=== PATIENT | male | born 1965 | race Two or more races ===

== ENCOUNTER 2019-04-21 01:34 | Emergency (ER) | payer BC ==
[2019-04-21] MEDS ORDERED: Sodium Chloride 0.9% 10 ML Syringe FLUSH PRN (02:06)
[2019-04-21] MEDS ORDERED: Ondansetron 4 MG/2 ML SDV IVPUSH ONE (02:06)
[2019-04-21] MEDS ORDERED: Ketorolac 30 MG/ML SDV IVPUSH ONE (02:06)
[2019-04-21] MEDS ORDERED: Sodium Chloride 0.9% 2.5 ML Syringe FLUSH PRN (02:06)
[2019-04-21] MEDS ORDERED: Sodium Chloride 0.9% 1,000 ML IV ONE (02:06)
--- NOTE | 2019-04-21 02:18 | EDM.PDOC ---
<Vidal Montiel - Last Filed: 04/21/19 03:51> ED HPI GENERAL MEDICAL PROBLEM - General Chief Complaint: Genitourinary Problem Stated Complaint: STOMACH PAIN Time Seen by Provider: 04/21/19 01:49 - History of Present Illness INITIAL COMMENTS - FREE TEXT/NARRATIVE: HISTORY AND PHYSICAL: History of present illness: 53-year-old male presents in the emergency department accompanied by his for the evaluation of 7/10 constant sharp shooting right flank pain and right lower quadrant abdominal pain. The patient first noted the pain approximately 3 hours ago. He had difficulties falling asleep due to the pain and thus as presented for evaluation. Pain H&H in the right lower quadrant extends down through his right groin and he points down to his penis. The patient admits to not drinking enough water the day he works outside. The patient has no history of kidney stone and has not had an appendectomy. The patient denies any recent fevers or chills. He report nausea but without episodes of vomiting. Review of systems: As per history of present illness and below otherwise all systems reviewed and negative. Past medical history: As per history of present illness and as reviewed below otherwise noncontributory. Surgical history: As per history of present illness and as reviewed below otherwise noncontributory. Social history: No reported history of drug or alcohol abuse. Family history: As per history of present illness and as reviewed below otherwise noncontributory. Physical exam: Constitutional: HEENT: Atraumatic, normocephalic, pupils reactive, negative for conjunctival pallor or scleral icterus, mucous membranes moist, throat clear, neck supple, nontender, trachea midline. Lungs: Clear to auscultation, breath sounds equal bilaterally, chest nontender. Heart: S1S2, regular, negative for clicks, rubs, or JVD. Abdomen: Soft, nondistended, Slight tenderness to palpation to the RLQ. Negative for masses or hepatosplenomegaly. Positive for right costovertebral tenderness. Pelvis: Stable nontender. Genitourinary: Deferred. Rectal: Deferred. Extremities: Atraumatic, negative for cords or calf pain. Neurovascular unremarkable. Neuro: Awake, alert, oriented. Cranial nerves II through XII unremarkable. Cerebellum unremarkable. Motor and sensory unremarkable throughout. Exam nonfocal. Diagnostics: UA, CBC, CMP, CT of abdomen & pelvis without contrast Therapeutics: Zofran Toradol 1L 0.9 NS Flowmax Impression: Right flank pain Right abdominal pain Right nephrolithiasis Plan: Review of CT abdomen and pelvis reveals a 4 mm stone present in the right ureterovesicular junction causing a mild right ureter and mild to right renal pelvocaliectasis. The left kidney is unremarkable. Additionally, there is a large gallstone is present measuring 4 x 2.5cm. The results of his UA demonstrated no UTI. However, his specific gravity was elevated. The patient is stable to be discharged home with a prescription for flowmax, noroco & zofran. Additionally, he will be given a urinary strainer. We stressted the importance of him to consume more water. He is to monitor his urinary output if this decreases he needs to seek additional care. Education provided to the patient and his . There questions were answered. Definitive disposition and diagnosis as appropriate pending reevaluation and review of above. Right Lower Abdominal Pain Score (Numeric/FACES): 7 - Related Data Allergies Allergy/AdvReac Type Severity Reaction Status Date / Time No Known Allergies Allergy Verified 04/21/19 01:45 Home Meds: Home Meds Hydrocodone/Acetaminophen [[place] 7.5-325 Tablet] 1 each PO Q8H PRN #10 tablet [Rx] Lisinopril 5 mg PO DAILY 04/21/19 [History] Ondansetron [Zofran ODT] 4 mg PO Q8H PRN #10 tab.dis 04/21/19 [Rx] Tamsulosin HCl [Flomax] 0.4 mg PO DAILY #10 cap.er.24h 04/21/19 [Rx] atorvaSTATin [Lipitor] 10 mg PO BEDTIME 04/21/19 [History] metFORMIN [Glucophage XR] 850 mg PO BID 04/21/19 [History] Past Medical History Cardiovascular History: Reports: Hypertension Other Cardiovascular History: WPW Respiratory History: Reports: None Endocrine/Metabolic History: Reports: Diabetes, Type II - Infectious Disease History Infectious Disease History: Reports: Chicken Pox Social & Family History - Family History Family Medical History: Noncontributory - Tobacco Use Smoking Status *Q: Never Smoker Second Hand Smoke Exposure: No - Caffeine Use Caffeine Use: Reports: None - Recreational Drug Use Recreational Drug Use: No Course - Vital Signs Last Recorded V/S: Last Vital Signs Temp 35.6 C 04/21/19 01:48 Pulse 58 L 04/21/19 01:48 Resp 16 04/21/19 01:48 BP 163/92 H 04/21/19 01:48 Pulse Ox 96 04/21/19 01:48 - Orders/Labs/Meds Orders: Active Orders 24 hr Category Date Time Status Communication Order [RC] STAT Care 04/21/19 03:20 Active Sodium Chloride 0.9% [Saline Flush] Med 04/21/19 02:06 Active 10 ml FLUSH ASDIRECTED PRN Sodium Chloride 0.9% [Saline Flush] Med 04/21/19 02:06 Active 2.5 ml FLUSH ASDIRECTED PRN Saline Lock Insert [OM.PC] Stat Oth 04/21/19 02:05 Ordered Medication Orders Sodium Chloride (Saline Flush) 10 ml FLUSH ASDIRECTED PRN PRN Reason: Keep Vein Open Last Admin: 04/21/19 02:20 Dose: 10 ml Sodium Chloride (Saline Flush) 2.5 ml FLUSH ASDIRECTED PRN PRN Reason: Keep Vein Open Last Admin: 04/21/19 02:21 Dose: 2.5 ml Labs: Laboratory Tests 04/21/19 04/21/19 04/21/19 Range/Units 01:50 01:50 03:35 WBC 11.37 H (4.0-11.0) K/uL RBC 5.56 (4.50-5.90) M/uL Hgb 16.6 (13.0-17.0) g/dL Hct 47.7 (38.0-50.0) % MCV 85.8 (80.0-98.0) fL MCH 29.9 (27.0-32.0) pg MCHC 34.8 (31.0-37.0) g/dL RDW Std Deviation 40.6 (28.0-62.0) fl RDW Coeff of Stephanie 13 (11.0-15.0) % Plt Count 183 (150-400) K/uL MPV 11.30 (7.40-12.00) fL Neut % (Auto) 45.3 L (48.0-80.0) % Lymph % (Auto) 42.0 H (16.0-40.0) % [place] % (Auto) 10.1 (0.0-15.0) % Eos % (Auto) 2.4 (0.0-7.0) % Baso % (Auto) 0.2 (0.0-1.5) % Neut # (Auto) 5.2 (1.4-5.7) K/uL Lymph # (Auto) 4.8 H (0.6-2.4) K/uL [place]he # (Auto) 1.2 H (0.0-0.8) K/uL Eos # (Auto) 0.3 (0.0-0.7) K/uL Baso # (Auto) 0.0 (0.0-0.1) K/uL Nucleated RBC % 0.0 /100WBC Nucleated RBCs # 0 K/uL Sodium 140 (136-148) mmol/L Potassium 3.6 (3.5-5.1) mmol/L Chloride 104 (98-107) mmol/L Carbon Dioxide 25.0 (21.0-32.0) mmol/L BUN 18 (7.0-18.0) mg/dL Creatinine 1.1 (0.8-1.3) mg/dL Est Cr Clr Drug Dosing 64.28 mL/min Estimated GFR (MDRD) > 60.0 ml/min Glucose 177 H (74-106) mg/dL Calcium 9.1 (8.5-10.1) mg/dL Total Bilirubin 0.4 (0.2-1.0) mg/dL AST 70 H (15-37) IU/L ALT 149 H (14-63) IU/L Alkaline Phosphatase 150 H (46-116) U/L Total Protein 7.7 (6.4-8.2) g/dL Albumin 4.1 (3.4-5.0) g/dL Globulin 3.6 (2.6-4.0) g/dL Albumin/Globulin Ratio 1.1 (0.9-1.6) Urine Color YELLOW Urine Appearance CLEAR Urine pH 5.5 (5.0-8.0) Ur Specific [place] >= 1.030 (1.001-1.035) Urine Protein 100 H (NEGATIVE) mg/dL Urine Glucose (UA) NEGATIVE (NEGATIVE) mg/dL Urine Ketones NEGATIVE (NEGATIVE) mg/dL Urine Occult Blood LARGE H (NEGATIVE) Urine Nitrite NEGATIVE (NEGATIVE) Urine Bilirubin NEGATIVE (NEGATIVE) Urine Urobilinogen 0.2 (<2.0) EU/dL Ur Leukocyte Esterase NEGATIVE (NEGATIVE) Urine RBC 8-11 (0-2/HPF) Urine WBC 0-1 (0-5/HPF) Ur Epithelial Cells RARE (NONE-FEW) Calcium Oxalate Crystal FEW (NEGATIVE) Urine Bacteria FEW (NEGATIVE) Urine Mucus LIGHT (NONE-MOD) Meds: Medications Generic Name Dose Route Start Last Admin Trade Name Freq PRN Reason Stop Dose Admin Sodium Chloride 10 ml 04/21/19 02:06 04/21/19 02:20 Saline Flush FLUSH 10 ml ASDIRECTED PRN Administration Keep Vein Open Sodium Chloride 2.5 ml 04/21/19 02:06 04/21/19 02:21 Saline Flush FLUSH 2.5 ml ASDIRECTED PRN Administration Keep Vein Open Discontinued Medications Generic Name Dose Route Start Last Admin Trade Name Richq PRN Reason Stop Dose Admin Sodium Chloride 1,000 mls @ 999 mls/hr 04/21/19 02:06 04/21/19 02:14 Normal Saline IV 04/21/19 03:06 999 mls/hr STAT ONE Administration Ketorolac Tromethamine 30 mg 04/21/19 02:06 04/21/19 02:19 Toradol IVPUSH 04/21/19 02:07 30 mg ONETIME ONE Administration Morphine Sulfate 2 mg 04/21/19 03:23 04/21/19 03:31 Morphine IVPUSH 04/21/19 03:24 2 mg ONETIME ONE Administration Ondansetron HCl 4 mg 04/21/19 02:06 04/21/19 02:19 Zofran IVPUSH 04/21/19 02:07 4 mg ONETIME ONE Administration Tamsulosin HCl 0.4 mg 04/21/19 03:19 04/21/19 03:30 Flomax PO 04/21/19 03:20 0.4 mg ONETIME ONE Administration Departure - Departure Disposition: Home, Self-Care 01 Clinical Impression: Ureterolithiasis - Discharge Information Prescriptions: Hydrocodone/Acetaminophen [[place] 7.5-325 Tablet] 1 each PO Q8H PRN #10 tablet PRN Reason: Pain (Severe 7-10) Ondansetron [Zofran ODT] 4 mg PO Q8H PRN #10 tab.dis PRN Reason: Nausea/Vomiting Tamsulosin HCl [Flomax] 0.4 mg PO DAILY #10 cap.er.24h Instructions: Kidney Stones, [id number] Referrals: Leonidas Willingham MD [Primary Care Provider] - Forms: ED Department Discharge Additional Instructions: The following information is given to patients seen in the emergency department who are being discharged to home. This information is to outline your options for follow-up care. We provide all patients seen in our emergency department with a follow-up referral. The need for follow-up, as well as the timing and circumstances, are variable depending upon the specifics of your emergency department visit. If you don't have a primary care physician on staff, we will provide you with a referral. We always advise you to contact your personal physician following an emergency department visit to inform them of the circumstance of the visit and for follow-up with them and/or the need for any referrals to a consulting specialist. The emergency department will also refer you to a specialist when appropriate. This referral assures that you have the opportunity for followup care with a specialist. All of these measure are taken in an effort to provide you with optimal care, which includes your followup. Under all circumstances we always encourage you to contact your private physician who remains a resource for coordinating your care. When calling for followup care, please make the office aware that this follow-up is from your recent emergency room visit. If for any reason you are refused follow-up, please contact the [facility] emergency department at and ask to speak to the emergency department charge nurse. [facility] [address] [place] [id number] Strain all urine looking for the kidney stone and push hydration. You have been given prescriptions for [place] for pain, Zofran for nausea and vomiting and the Flomax it will help push the stone out. You have been given a dose of Flomax here this morning so take the next dose before bedtime later tonight. You may use [id number] Tylenol or ibuprofen for pain management while your work and up and about and/or driving a car and only take the Princeton when you're at home for stronger pain. Keep in mind the Princeton may make you dizzy or drowsy so do not drive a car or operate any machinery and only take while at home. Please call and schedule a follow-up appointment with our urologist for reevaluation and further care of the kidney stone and return to ER as needed and as discussed - My Orders Last 24 Hours: My Active Orders 04/21/19 02:05 Saline Lock Insert [OM.PC] Stat 04/21/19 02:06 Sodium Chloride 0.9% [Saline Flush] 10 ml FLUSH ASDIRECTED PRN Sodium Chloride 0.9% [Saline Flush] 2.5 ml FLUSH ASDIRECTED PRN 04/21/19 03:20 Communication Order [RC] STAT - Assessment/Plan Last 24 Hours: My Active Orders 04/21/19 02:05 Saline Lock Insert [OM.PC] Stat 04/21/19 02:06 Sodium Chloride 0.9% [Saline Flush] 10 ml FLUSH ASDIRECTED PRN Sodium Chloride 0.9% [Saline Flush] 2.5 ml FLUSH ASDIRECTED PRN 04/21/19 03:20 Communication Order [RC] STAT <Aury Marks - Last Filed: 04/21/19 03:57> ED HPI GENERAL MEDICAL PROBLEM - History of Present Illness INITIAL COMMENTS - FREE TEXT/NARRATIVE: This is Dr. Marks dictating addendum note as I'm the supervising physician on this case. I agree with history and physical as above and the patient does have a history of hypertension hypercholesterolemia and [id number] diabetes. He says the pain started suddenly and it was in the right flank and has migrated and is now in the right mid abdomen shooting down to his testicle. He does not have any urinary complaints such as frequency or urgency and has no kidney or prostate history. He's had no fever with this but is nauseated. He only took Tylenol prior to coming here. On my physical exam he is comfortable in the room and ambulatory in the ED and is not diaphoretic. He only has some mild tenderness to palpation in the abdomen on the right side that I cannot reproduce the pain exactly and there is no rebound or guarding. We will proceed with our workup including UA with reflex CBC CMP and CT scan of the abdomen and pelvis without contrast looking for kidney stone. We will give him IV fluids Zofran and Toradol and reevaluate his pain for more medications as needed. The patient's pain was improved but we will give him a small dose of morphine as well as Escribe him prescriptions for [place] Zofran and Flomax for home. The patient was offered Insty Meds but preferred to have them sent to the pharmacy. We encouraged increased hydration and straining of his urine and will give him urology follow-up; the patient was also told about the incidental gallstone and the need to monitor that and follow-up Impression: Right ureterolithiasis/UVJ stone, incidental gallstone ED ROS GENERAL - Review of Systems Review Of Systems: ROS reveals no pertinent complaints other than HPI. ED EXAM, GI/ABD - Physical Exam Exam: See Below (See dictation) Departure - Departure Time of Disposition: 03:56 Condition: Good
[2019-04-21 02:36] LABS: CHLORIDE,CL 104 mmol/L (98-107); SODIUM,NA 140 mmol/L (136-148)
--- NOTE | 2019-04-21 02:56 | CT ---
INDICATION: Right side abdominal pain TECHNIQUE: CT Abdomen and pelvis without i.v. contrast. Coronal and sagittal reformats were obtained. COMPARISON: None FINDINGS: Lower chest: Unremarkable. Liver: Unremarkable. Spleen: Unremarkable. Pancreas: Unremarkable. Gallbladder: A large gallstone is present measuring nearly 4 x 2.5 cm. Kidney: There is a 4 mm stone present in the right ureterovesicular junction causing mild right hydroureter and mild to moderate right renal pelvicaliectasis. The left kidney and ureter are unremarkable in appearance. Adrenal: Unremarkable. Bowel: Unremarkable. The appendix is normal in appearance and size. Vascular: Unremarkable. Lymph: Unremarkable. Peritoneum: Unremarkable. No pneumoperitoneum is seen. No significant ascites is noted. Pelvis: Unremarkable. Soft tissue: Unremarkable. Bone: Unremarkable for age. IMPRESSION: 1. There is a 4 mm stone present in the right ureterovesicular junction causing mild right hydroureter and mild to moderate right renal pelvicaliectasis. Dictated by Tucker Melgar MD @ 04/21/2019 2:53:49 AM Please note that all CT scans at this facility use dose modulation, iterative reconstruction, and/or weight-based dosing when appropriate to reduce radiation dose to as low as reasonably achievable. Dictated by: Tucker Melgar MD @ 04/21/2019 02:53:54 (Electronically Signed)
[2019-04-21] MEDS ORDERED: Tamsulosin 0.4 MG Cap.ER PO ONE (03:19)
[2019-04-21] MEDS ORDERED: Morphine 2 MG/ML Syringe IVPUSH ONE (03:23)
== END 2019-04-21 04:14 | disposition home or self-care (01) ==
LOC: MW.ED 01:34
DX: N20.2 Calculus of kidney with calculus of ureter (principal); N13.4 Hydroureter; K80.20 Calculus of gallbladder without cholecystitis without obstruction; I10 Essential (primary) hypertension; E11.9 Type 2 diabetes mellitus without complications; Z79.899 Other long term (current) drug therapy; Z79.84 Long term (current) use of oral hypoglycemic drugs
CPT/HCPCS: 36415; 74176; 80053; 81001; 85025; 96361; 96374; 96375; 99284; A9270; J1885; J2270; J2405; J7040